=== PATIENT | female | born 1930 | race Caucasian/White ===

== ENCOUNTER 2017-10-08 01:26 | Emergency (ER) | payer OTHER ==
[~2017-10-08] VITALS: Ht 162.6 cm; Wt 59.0 kg
[2017-10-08 01:26] VITALS: BP_SYST 148
[2017-10-08] MEDS ORDERED: DIAZEPAM 10 MG/2 ML DISP.SYRIN IVP ONE (01:45)
[2017-10-08] MEDS ORDERED: MORPHINE 2 MG/ML INJ. SYRINGE IVP ONE (01:45)
[2017-10-08] MEDS ORDERED: ONDANSETRON HCL 4 MG/2 ML VIAL IVP ONE (01:45)
[2017-10-08] MEDS ORDERED: KETOROLAC TROMETHAMINE 15 MG VIAL IVP ONE (01:45)
[2017-10-08] MEDS ORDERED: LIP20 PO (01:54)
[2017-10-08] MEDS ORDERED: ACET-2165 PO (01:54)
[2017-10-08 01:57] LABS: BASOPHILS # (AUTO) 0.1 K/uL (0.0-0.2); BASOPHILS % (AUTO) 1.2 % (0.0-2.0); EOSINOPHILS # (AUTO) 0.2 K/uL (0.0-0.4); EOSINOPHILS % (AUTO) 2.2 % (0.0-4.0); HEMATOCRIT 35.5 % (36-48); HEMOGLOBIN 11.6 g/dL (12.0-16.0); LYMPHOCYTES # (AUTO) 2.9 K/uL (1.0-5.5); LYMPHOCYTES % (AUTO) 41.8 % (20.5-51.5); MEAN CORPUSCULAR HEMOGLOBIN 31 pg (27-31); MEAN CORPUSCULAR HGB CONC 33 % (32-36); MEAN CORPUSCULAR VOLUME 95 fL (79.0-98.0); MONOCYTES # (AUTO) 0.5 K/uL (0.0-1.0); MONOCYTES % (AUTO) 7.5 % (1.7-9.3); NEUTROPHILS # (AUTO) 3.3 K/uL (1.8-7.7); NEUTROPHILS % (AUTO) 47.3 % (40.0-70.0); PLATELET COUNT (AUTO) 219 K/uL (130-430); RED BLOOD CELL COUNT(AUTO) 3.72 MIL/uL (4.2-6.2); RED CELL DISTRIBUTION WIDTH 14.1 % (9.0-15.0)
[2017-10-08] MEDS ORDERED: DULR10 RC (01:57)
[2017-10-08] MEDS ORDERED: DABI75CA4 PO (01:58)
[2017-10-08] MEDS ORDERED: DILT60TA3 PO (01:58)
[2017-10-08] MEDS ORDERED: ESCI10TA PO (01:59)
[2017-10-08] MEDS ORDERED: FAMO20TA8 PO (02:00)
[2017-10-08] MEDS ORDERED: FESO4TAB PO (02:00)
[2017-10-08] MEDS ORDERED: HYDR-4100 PO (02:01)
[2017-10-08] MEDS ORDERED: LEVE250T2 PO (02:07)
[2017-10-08] MEDS ORDERED: MAGN400O4 PO (02:08)
[2017-10-08] MEDS ORDERED: METO25TA6 PO (02:09)
[2017-10-08 02:11] LABS: ANION GAP 9 (5-15); CALCIUM 9.8 mg/dL (8.4-11.0); CHLORIDE 104 mmol/L (98-107); CREATININE 1.15 mg/dL (0.55-1.30); GLUCOSE 109 mg/dL (70-99); SODIUM SERUM 140 mmol/L (136-145); UREA NITROGEN, BLOOD 28 mg/dL (8-21)
[2017-10-08] MEDS ORDERED: NA P118E RC (02:11)
[2017-10-08] MEDS ORDERED: cloNIDine HCL 0.1 MG TABLET PO ONE (04:00)
[2017-10-08 04:44] VITALS: BP_SYST 141
== END 2017-10-08 04:44 | disposition home or self-care (01) ==
LOC: SED 01:26
DX: M62.838 Other muscle spasm (principal); I48.91 Unspecified atrial fibrillation; Z79.899 Other long term (current) drug therapy
CPT/HCPCS: 36415; 73502; 73552; 73560; 80048; 85025; 96374; 96375; 99285; J1885; J2270; J2405; J3360

== ENCOUNTER 2017-10-19 13:44 | Emergency (ER) | payer OTHER ==
[~2017-10-19] VITALS: Ht 160 cm; Wt 59.0 kg
[~2017-10-19 13:44] MED LIST: ACET-2165 PO; DABI75CA4 PO; DILT60TA3 PO; DULR10 RC; ESCI10TA PO; FAMO20TA8 PO; FESO4TAB PO; HYDR-4100 PO; LEVE250T2 PO; LIP20 PO; MAGN400O4 PO; METO25TA6 PO; NA P118E RC
[2017-10-19 13:45] VITALS: BP_SYST 114
[2017-10-19 14:31] LABS: BASOPHILS % (AUTO) 0.5 % (0.0-2.0); EOSINOPHILS # (AUTO) 0.2 K/uL (0.0-0.4); EOSINOPHILS % (AUTO) 3.6 % (0.0-4.0); HEMATOCRIT 30.1 % (36-48); HEMOGLOBIN 9.6 g/dL (12.0-16.0); LYMPHOCYTES # (AUTO) 1.1 K/uL (1.0-5.5); LYMPHOCYTES % (AUTO) 19.8 % (20.5-51.5); MEAN CORPUSCULAR HEMOGLOBIN 31 pg (27-31); MEAN CORPUSCULAR HGB CONC 32 % (32-36); MEAN CORPUSCULAR VOLUME 96 fL (79.0-98.0); MONOCYTES # (AUTO) 0.5 K/uL (0.0-1.0); MONOCYTES % (AUTO) 8.4 % (1.7-9.3); NEUTROPHILS # (AUTO) 3.9 K/uL (1.8-7.7); NEUTROPHILS % (AUTO) 67.7 % (40.0-70.0); PLATELET COUNT (AUTO) 212 K/uL (130-430); RED BLOOD CELL COUNT(AUTO) 3.14 MIL/uL (4.2-6.2); RED CELL DISTRIBUTION WIDTH 14.4 % (9.0-15.0); WHITE BLOOD COUNT (AUTO) 5.7 K/uL (4.8-10.8)
[2017-10-19 14:55] LABS: ANION GAP 5 (5-15); CALCIUM 9.4 mg/dL (8.4-11.0); CHLORIDE 107 mmol/L (98-107); CREATININE 1.54 mg/dL (0.55-1.30); GLUCOSE 96 mg/dL (70-99); POTASSIUM 4.6 mmol/L (3.5-5.1); SODIUM SERUM 137 mmol/L (136-145); UREA NITROGEN, BLOOD 25 mg/dL (8-21)
[2017-10-19 14:57] LABS: ALANINE AMINOTRANSFERASE 18 U/L (12-78); ALBUMIN 3.1 g/dL (3.4-4.8); ASPARTATE AMINOTRANSFERASE 25 U/L (10-37); TOTAL BILIRUBIN 0.3 mg/dL (0.0-1.0)
[2017-10-19 15:40] VITALS: BP_SYST 114
== END 2017-10-19 15:40 | disposition home or self-care (01) ==
LOC: SED 13:44
DX: R00.2 Palpitations (principal); I48.91 Unspecified atrial fibrillation; Z79.899 Other long term (current) drug therapy
CPT/HCPCS: 36415; 71045; 80053; 84484; 85025; 93005; 99285